=== PATIENT | male | born 1950 | race Caucasian/White ===

== ENCOUNTER → 2016-11-06 | Day surgery (SDC) | payer MEDICARE, OTHER ==
[~2016-11-06] VITALS: Ht 188 cm; Wt 113.0 kg
[~2016-11-06] MED LIST: ADVAIR 250-501 EACH INH; ASPIRIN LO-DOSE81 MG PO; LIPITOR20 M1 PO; TYLENOL WITH C1 EACH PO
--- NOTE | ~2016-11-06 | OR ---
PATIENT'S NAME: JENNIFER LONG [facility] AGE: 66 Y [address] ROOM: [place] [id number] LOCATION: [facility] [place] DATE: 11/06/2016 OR/Procedure Report DISCHARGE DATE: FAMILY PHYSICIAN: Dane Cardona ATTENDING PHYSICIAN: Axel Motta SURGEON: Axel Motta MD QUALITY SPECIALIST: DATE OF PROCEDURE: 11/06/2016 PREOPERATIVE DIAGNOSIS: Left nephrolithiasis. POSTOPERATIVE DIAGNOSIS: Left nephrolithiasis. PROCEDURE PERFORMED: Cystoscopy, retrograde pyelogram, left stent placement. ANESTHESIA: MAC. COMPLICATIONS: None. INDICATION FOR PROCEDURE: The patient is a 66-year-old male, who was initially seen in the emergency room in [place] on November 02 with left flank pain. The patient has a prior history of nephrolithiasis. Abdominopelvic CT scan revealed a 5 x 3 x 2 mm proximal left ureter stone. The patient has not passed his stones and has significant discomfort. DETAILS OF PROCEDURE: After informed consent was obtained, the patient was taken to the operating room. A MAC anesthetic was applied and he was placed in the dorsal lithotomy position. The groin area was prepped and draped in normal sterile fashion. Cystoscope was introduced into the urethra and bladder without difficulty. The left ureteral orifice was cannulated to open in the catheter and then the guidewire. The catheter was advanced to mid ureter and then the retrograde pyelogram was taken. This revealed what appeared to be a radiolucent stone in the renal pelvis. Following that, the open-ended catheter was removed, and a 6-[place] multi-length ureteral stent was passed over the guidewire up into the renal pelvis. Radiograph imaging showed good position of the stent. The bladder was empty and the procedure terminated. The patient tolerated the procedure well and was transferred to recovery room in good condition. The patient will have ESWL of his radiolucent stone in the near future. AXEL MOTTA MD PATIENT'S NAME: JENNIFER LONG [facility] AGE: 66 Y [address] ROOM: [place] [id number] LOCATION: [facility] [place] DATE: 11/06/2016 OR/Procedure Report DISCHARGE DATE: FAMILY PHYSICIAN: Dane Cardona ATTENDING PHYSICIAN: Axel Motta/arturo /[id number] CC: CHRISTIAN Chaney d: 11/06/16 2117 t: 11/09/16 1925, OPERATIVE SUMMARY
[2016-11-06 13:21] LABS: BASOPHIL % 0.2 %; EOSINOPHIL # 0.1 K/uL (0.0-0.5); EOSINOPHIL % 0.7 %; HEMATOCRIT 41.1 % (37.0-53.0); HEMOGLOBIN 13.8 g/dL (11.0-16.0); IMMATURE GRANULOCYTE % 0.3 %; LYMPHOCYTE # 1.7 K/uL (0.8-4.0); LYMPHOCYTE % 15.1 %; MCH 29.3 pg (27.0-34.0); MCHC 33.6 gm/dL (32.0-36.5); MCV 87.3 fl (83.0-98.0); MONOCYTE # 1.1 K/uL (0.0-1.0); MONOCYTE % 9.9 %; MPV 10.2 fl (9.4-12.4); NEUTROPHIL # (ANC) 8.3 K/uL (1.4-9.0); NEUTROPHIL % 73.8 %; NRBC % 0 /100WBC (0-0.00); PLATELET COUNT 245 K/uL (150-450); RBC 4.71 M/uL (3.50-5.50); WBC 11.3 K/uL (4.0-11.0)
[2016-11-06 13:38] LABS: ALBUMIN 3.3 gm/dL (3.5-5.0); ANION GAP 14.2 (10.0-19.0); CALCIUM 8.8 mg/dL (8.5-10.5); CREATININE 1.9 mg/dL (0.6-1.3); POTASSIUM 4.2 mMol/L (3.7-5.1); TOTAL BILIRUBIN 0.9 mg/dL (0.0-1.5); TOTAL PROTEIN 7.4 g/dL (6.0-8.4)
== END | disposition disaster alternative care site (69) ==
LOC: GSDC 12:05 → GPOC 12:30
PROVIDERS: Urology
PROC: 0T778DZ Dilation of Left Ureter with Intraluminal Device, Via Natural or Artificial Opening Endoscopic (ICD-10-PCS; principal; 2016-11-06)
DX: N20.2 Calculus of kidney with calculus of ureter (principal); Z98.1 Arthrodesis status
CPT/HCPCS: C1769; J1100; J1956; J2405; J7120